=== PATIENT | male | born 1995 | race African-American/Black ===

== ENCOUNTER 2018-01-14 12:05 | Emergency (ER) | payer OTHER ==
[2018-01-14] MEDS: ONDANSETRON 4 MG ORAL DISINTEGRATING TAB (Q0162 PER 1MG) PO (13:26)
== END 2018-01-14 13:27 | disposition home or self-care (01) ==
LOC: M ED 12:05
DX: T62.91XA Toxic effect of unspecified noxious substance eaten as food, accidental (unintentional), initial encounter (principal)
CPT/HCPCS: Q0162